=== PATIENT | male | born 1980 | race Caucasian/White ===

== ENCOUNTER → 2017-03-08 | Outpatient (CLI) | payer BC ==
[~2017-03-08] VITALS: Ht 172.7 cm; Wt 83.5 kg
[2017-03-08 13:38] VITALS: BP 121/76; PULSE 83; Ht 172.7 cm; Wt 83.5 kg
== END | disposition home or self-care (01) ==
LOC: C.NEUR 13:25
PROVIDERS: ATTEND Internal Medicine Pulmonary Disease
DX: G47.30 Sleep apnea, unspecified (principal)